=== PATIENT | female | born 1995 | race Hispanic/Latino ===

== ENCOUNTER 2021-10-15 18:07 | Day surgery (SDC) | payer OTHER ==
[2021-10-15] MEDS ORDERED: hydrALAZINE 20 MG/ML VIAL SLOW IVP PRN (19:31)
[2021-10-15 20:59] LABS: Bilirubin Neg (Negative); Blood, Urine Negative (Negative); Clarity Slightly Cloudy (Clear); Glucose, Urine (Dipstick) Normal (Negative); Ketone, Urine 50 mg/dL (Negative); Leukocyte Negative (Negative); Nitrite Negative (Negative); Protein, Urine (Dipstick) Negative (Neg-Trace); Specific Gravity, Urine 1.015 (1.002-1.036); Urobilinogen Normal mg/dL (Less than 2); pH, Urine 6.5 (5.0-9.0)
[2021-10-15 21:01] LABS: Urine Culture Reflex No No
[2021-10-15 21:03] LABS: Bacteria/HPF None Seen HPF (None Seen); RBC/HPF 0-3 HPF (0-3); Squamous Epithelial 0-3 HPF (0-3); WBC/HPF 0-3 HPF (0-3)
== END 2021-10-15 22:23 | disposition home or self-care (01) ==
LOC: CSHLD/OP 18:07
PROVIDERS: ATTEND Obstetrics & Gynecology
DX: O47.02 False labor before 37 completed weeks of gestation, second trimester (principal); O09.212 Supervision of pregnancy with history of pre-term labor, second trimester; O32.2XX0 Maternal care for transverse and oblique lie, not applicable or unspecified; Z3A.24 24 weeks gestation of pregnancy
CPT/HCPCS: 76815; 81001; 99284

== ENCOUNTER 2021-11-19 14:19 | Day surgery (SDC) | payer OTHER ==
[2021-11-19 14:49] VITALS: BMI 39.7
[2021-11-19] MEDS ORDERED: hydrALAZINE 20 MG/ML VIAL SLOW IVP PRN (16:37)
[2021-11-19 16:58] LABS: Bilirubin Neg (Negative); Blood, Urine Negative (Negative); Clarity Slightly Cloudy (Clear); Glucose, Urine (Dipstick) 50 mg/dL (Negative); Ketone, Urine 5 mg/dL (Negative); Leukocyte Negative (Negative); Nitrite Negative (Negative); Protein, Urine (Dipstick) 30 mg/dl (Neg-Trace); Specific Gravity, Urine 1.025 (1.002-1.036); Urobilinogen Normal mg/dL (Less than 2)
[2021-11-19 17:09] LABS: Bacteria/HPF 2+ HPF (None Seen); RBC/HPF 0-3 HPF (0-3); WBC/HPF 0-3 HPF (0-3)
== END 2021-11-19 18:30 | disposition home or self-care (01) ==
LOC: CSHLD/OP 14:19
PROVIDERS: ATTEND Obstetrics & Gynecology
DX: O99.891 Other specified diseases and conditions complicating pregnancy (principal); M54.50 Low back pain, unspecified; O09.213 Supervision of pregnancy with history of pre-term labor, third trimester; O99.013 Anemia complicating pregnancy, third trimester; D50.9 Iron deficiency anemia, unspecified; O26.613 Liver and biliary tract disorders in pregnancy, third trimester; K76.0 Fatty (change of) liver, not elsewhere classified; Z3A.29 29 weeks gestation of pregnancy
CPT/HCPCS: 51701; 76770; 81001; 87086; 99283

== ENCOUNTER 2021-11-26 10:06 | Day surgery (SDC) | payer OTHER ==
[2021-11-26 10:36] VITALS: BMI 40.7
[2021-11-26] MEDS ORDERED: hydrALAZINE 20 MG/ML VIAL SLOW IVP PRN (11:11)
[2021-11-26] MEDS ORDERED: Lactated Ringer's 1,000 ML IV SCH ×2 (11:15)
[2021-11-26] MEDS ORDERED: Ondansetron PF 4 MG/2 ML Vial IVP SCH (11:15)
[2021-11-26] MEDS ORDERED: Ondansetron PF 4 MG/2 ML Vial ONE (11:18)
[2021-11-26 12:34] LABS: #Monocytes 0.6 10x3/uL (0.0-1.1); #Neutrophils 9.3 10x3/uL (1.5-8.4); %Basophils 0.2 % (0.0-2.0); %Eosinophils 0.4 % (0.0-6.0); %Lymphocytes 9.6 % (18.0-47.0); %Monocytes 5.8 % (0.0-10.0); %Neutrophils 83.6 % (40.0-75.0); Hemoglobin 10.8 g/dL (12.0-15.5); Mean Corpuscular HGB CONC 33.9 g/dL (32.0-36.0); Mean Corpuscular Hemoglobin 28.5 pg (27.0-33.0); Mean Corpuscular Volume 84.2 fl (81.6-98.3); Mean Platelet Volume 11.1 fl (7.4-10.4); Platelet Count 236 10x3/uL (150-450); RBC Distribution Width 13.1 % (11.5-14.5); Red Blood Cell (RBC) Count 3.79 10x6/uL (3.90-5.03); White Blood Cell (WBC) Count 11.1 10x3/uL (3.5-10.5)
[2021-11-26 12:49] LABS: ALT (SGPT) 67 U/L (8-55); AST (SGOT) 52 U/L (5-34); Albumin 3.4 g/dL (3.5-5.0); Alkaline Phosphatase 66 U/L (40-110); Anion Gap 14 mmol/L (10-20); BUN (Urea Nitrogen) 5 mg/dL (7.0-18.7); Bilirubin, Total 0.3 mg/dL (0.2-1.2); Calc. Creatinine Clearance 306 mL/min (70-130); Calcium 8.7 mg/dL (7.8-10.44); Carbon Dioxide 20 mmol/L (22-29); Chloride 104 mmol/L (98-107); Globulin 3.3 g/dL (2.4-3.5); Glucose 97 mg/dL (70-105); Potassium 3.8 mmol/L (3.5-5.1); Protein, Total 6.7 g/dL (6.0-8.3); Sodium 134 mmol/L (136-145)
== END 2021-11-26 20:30 | disposition home or self-care (01) ==
LOC: CSHLD/OP 10:06
PROVIDERS: ATTEND Obstetrics & Gynecology
DX: O99.891 Other specified diseases and conditions complicating pregnancy (principal); R10.11 Right upper quadrant pain; O26.613 Liver and biliary tract disorders in pregnancy, third trimester; K76.0 Fatty (change of) liver, not elsewhere classified; Z3A.30 30 weeks gestation of pregnancy
CPT/HCPCS: 76705; 76815; 80053; 85025; 96360; 96361; 99281; J2405

== ENCOUNTER 2022-02-02 22:31 | Inpatient (IN) | payer OTHER ==
[2022-02-02 22:53] VITALS: BMI 41.7
[2022-02-02] MEDS ORDERED: Ondansetron PF 4 MG/2 ML Vial IVP PRN (23:22)
[2022-02-02] MEDS ORDERED: hydrALAZINE 20 MG/ML VIAL SLOW IVP PRN (23:22)
[2022-02-02] MEDS ORDERED: Promethazine HCl 25 MG/ML VIAL IM PRN (23:22)
[2022-02-02] MEDS ORDERED: Lidocaine 1% (PF) 30 ML VIAL SC PRN (23:22)
[2022-02-02] MEDS ORDERED: Ibuprofen 800 MG TAB PO PRN (23:22)
[2022-02-02] MEDS ORDERED: HYDROcodone/Acetaminophen 5/325 mg Tablet PO PRN (23:22)
[2022-02-02] MEDS ORDERED: Lactated Ringer's 1,000 ML IV SCH ×2 (23:30)
[2022-02-02] MEDS ORDERED: NS w/ Oxytocin 30 units 500 ML IV SCH (23:30)
[2022-02-03 00:05] LABS: Hemoglobin 11.3 g/dL (12.0-15.5); Mean Corpuscular HGB CONC 33.2 g/dL (32.0-36.0); Mean Corpuscular Volume 84.4 fl (81.6-98.3); Mean Platelet Volume 11.4 fl (7.4-10.4); Platelet Count 242 10x3/uL (150-450); RBC Distribution Width 13.3 % (11.5-14.5); Red Blood Cell (RBC) Count 4.03 10x6/uL (3.90-5.03); White Blood Cell (WBC) Count 7.6 10x3/uL (3.5-10.5)
[2022-02-03 00:46] LABS: HBSAg Index 0.16 S/CO (0-0.99); Hep B Surf Ag Non-Reactive S/CO (NonReactive); Syphilis Antibody Nonreactive (Nonreactive); Syphilis Antibody Index 0.07 S/CO (<1.00 Non-Reactive)
[2022-02-03] MEDS ORDERED: Boostrix 0.5 ML (Tdap) VIAL IM ONE (16:58)
[2022-02-03] MEDS ORDERED: Promethazine HCl 25 MG/ML VIAL IM PRN (16:58)
[2022-02-03] MEDS ORDERED: Ondansetron PF 4 MG/2 ML Vial IVP PRN (16:58)
[2022-02-03] MEDS ORDERED: diphenhydrAMINE 25 MG CAP PO PRN (16:58)
[2022-02-03] MEDS ORDERED: HYDROcodone/Acetaminophen 5/325 mg Tablet PO PRN (16:58)
[2022-02-03] MEDS ORDERED: Lanolin Ointment 7 GM TUBE TOP PRN (16:58)
[2022-02-03] MEDS ORDERED: Bisacodyl 10 MG SUPP PR PRN (16:58)
[2022-02-03] MEDS ORDERED: NS w/ Oxytocin 30 units 500 ML IV SCH (16:58)
[2022-02-03] MEDS ORDERED: hydrALAZINE 20 MG/ML VIAL SLOW IVP PRN (16:58)
[2022-02-03] MEDS ORDERED: Milk Of Magnesia 30 ML UDCUP PO PRN (16:58)
[2022-02-03] MEDS: Ferrous Sulfate 325 MG TAB PO SCH (17:58)
[2022-02-03] MEDS: Ibuprofen 800 MG TAB PO SCH (20:56)
[2022-02-03] MEDS: Docusate 100 MG CAP PO SCH (20:56)
[2022-02-04] MEDS: Ibuprofen 800 MG TAB PO SCH ×3 (05:07→21:16)
[2022-02-04] MEDS: Docusate 100 MG CAP PO SCH ×2 (08:44→21:16)
[2022-02-04] MEDS: Prenatal Vitamin 1 TAB PO SCH (08:44)
[2022-02-04] MEDS: Ferrous Sulfate 325 MG TAB PO SCH ×2 (08:49→18:23)
[2022-02-05] MEDS: Ibuprofen 800 MG TAB PO SCH (05:21)
[2022-02-05 07:48] VITALS: BP 133/76; TEMP 97.7
[2022-02-05] MEDS: Prenatal Vitamin 1 TAB PO SCH (08:24)
[2022-02-05] MEDS: Docusate 100 MG CAP PO SCH (08:24)
[2022-02-05] MEDS: Ferrous Sulfate 325 MG TAB PO SCH (08:24)
== END 2022-02-05 12:50 | disposition home or self-care (01) | DRG 807 ==
LOC: CSHLD/OP 22:31 → CSHLD 23:22 → UNDOADMIN 02-03 01:27 → CSHPP 02-03 16:13
PROVIDERS: ADMIT Family Medicine; ATTEND Family Medicine
PROC: 10907ZC Drainage of Amniotic Fluid, Therapeutic from Products of Conception, Via Natural or Artificial Opening (ICD-10-PCS; 2022-02-02)
PROC: 10E0XZZ Delivery of Products of Conception, External Approach (ICD-10-PCS; principal; 2022-02-03)
PROC: 10H07YZ Insertion of Other Device into Products of Conception, Via Natural or Artificial Opening (ICD-10-PCS; 2022-02-03)
DX: O99.214 Obesity complicating childbirth (principal); Z37.0 Single live birth; E66.9 Obesity, unspecified; Z3A.39 39 weeks gestation of pregnancy; Z79.899 Other long term (current) drug therapy
CPT/HCPCS: 85027; 86780; 86850; 86900; 86901; 87340; 87811; 99285

== ENCOUNTER 2024-03-13 15:50 | Emergency (ER) | payer OTHER ==
[2024-03-13 18:35] LABS: #Basophils 0.03 10x3/uL (0.0-0.2); #Eosinphils 0.17 10x3/uL (0.0-0.5); #Monocytes 0.64 10x3/uL (0.0-1.1); #Neutrophils 5.11 10x3/uL (1.5-8.4); %Basophils 0.3 % (0.0-2.0); %Eosinophils 1.9 % (0.0-6.0); %Lymphocytes 32.9 % (18.0-47.0); %Monocytes 7.2 % (0.0-10.0); %Neutrophils 57.4 % (40.0-75.0); Hematocrit 31.5 % (34.9-44.5); Hemoglobin 10.3 g/dL (12.0-15.5); Mean Corpuscular HGB CONC 32.7 g/dL (32.0-36.0); Mean Corpuscular Hemoglobin 28.8 pg (27.0-33.0); Mean Platelet Volume 10.4 fL (7.4-10.4); Platelet Count 260 10x3/uL (150-450); RBC Distribution Width 13.5 % (11.5-14.5); Red Blood Cell (RBC) Count 3.58 10x6/uL (3.90-5.03); White Blood Cell (WBC) Count 8.9 10x3/uL (3.5-10.5)
[2024-03-13 18:47] LABS: ALT (SGPT) 12 U/L (8-55); AST (SGOT) 15 U/L (5-34); Albumin 3.2 g/dL (3.5-5.0); Alkaline Phosphatase 50 U/L (40-110); Anion Gap 12 mmol/L (10-20); BUN (Urea Nitrogen) 8 mg/dL (7.0-18.7); Bilirubin, Total Less than 0.2 mg/dL (0.2-1.2); Calc. Creatinine Clearance 0 mL/min (70-130); Calcium 8.9 mg/dL (7.8-10.44); Carbon Dioxide 22 mmol/L (22-29); Chloride 105 mmol/L (98-107); Estimated GFR 126; Globulin 3.8 g/dL (2.4-3.5); Glucose 88 mg/dL (70-105); Lipase 59 U/L (8-78); Potassium 3.7 mmol/L (3.5-5.1); Sodium 135 mmol/L (136-145)
[2024-03-13] MEDS ORDERED: Morphine 4 MG/ML VIAL ONE (19:09)
[2024-03-13] MEDS ORDERED: Ondansetron PF 4 MG/2 ML Vial ONE (19:10)
[2024-03-13 20:22] LABS: Bilirubin Neg (Negative); Blood, Urine Negative (Negative); Clarity Clear (Clear); Glucose, Urine (Dipstick) Normal (Negative); Ketone, Urine Negative (Negative); Leukocyte 25 (Negative); Nitrite Negative (Negative); Protein, Urine (Dipstick) Negative (Neg-Trace); Urobilinogen Normal mg/dL (Less than 2)
[2024-03-13 20:33] LABS: Bacteria/HPF 1+ HPF (None Seen); CAUTI Indications for Culture Pelvic or flank pain; RBC/HPF None Seen HPF (0-3); Squamous Epithelial 0-3 HPF (0-3); WBC/HPF 0-3 HPF (0-3)
[2024-03-13 20:34] LABS: Urine Culture Reflex No No
== END 2024-03-13 21:15 | disposition home or self-care (01) ==
LOC: CSHERS 15:50
DX: O23.42 Unspecified infection of urinary tract in pregnancy, second trimester (principal); N39.0 Urinary tract infection, site not specified; Z3A.19 19 weeks gestation of pregnancy
CPT/HCPCS: 36415; 80053; 81001; 83690; 85025; 87086; J2272; J2405

== ENCOUNTER 2024-03-14 13:05 | Emergency (ER) | payer OTHER ==
[2024-03-14] MEDS ORDERED: Morphine 4 MG/ML VIAL ONE (13:46)
[2024-03-14 14:06] LABS: Bilirubin Neg (Negative); Blood, Urine Negative (Negative); Clarity Clear (Clear); Glucose, Urine (Dipstick) Normal (Negative); Ketone, Urine Negative (Negative); Leukocyte Negative (Negative); Nitrite Negative (Negative); Protein, Urine (Dipstick) Negative (Neg-Trace); Urobilinogen Normal mg/dL (Less than 2)
[2024-03-14] MEDS ORDERED: Ondansetron PF 4 MG/2 ML Vial ONE (14:06)
[2024-03-14 14:10] LABS: #Basophils 0.03 10x3/uL (0.0-0.2); #Monocytes 0.56 10x3/uL (0.0-1.1); #Neutrophils 5.55 10x3/uL (1.5-8.4); %Basophils 0.3 % (0.0-2.0); %Eosinophils 1.1 % (0.0-6.0); %Lymphocytes 29.8 % (18.0-47.0); %Monocytes 6.3 % (0.0-10.0); %Neutrophils 62.1 % (40.0-75.0); Hematocrit 35.3 % (34.9-44.5); Hemoglobin 11.1 g/dL (12.0-15.5); Mean Corpuscular HGB CONC 31.4 g/dL (32.0-36.0); Mean Corpuscular Hemoglobin 28.2 pg (27.0-33.0); Mean Corpuscular Volume 89.8 fL (81.6-98.3); Mean Platelet Volume 10.9 fL (7.4-10.4); Platelet Count 197 10x3/uL (150-450); RBC Distribution Width 13.6 % (11.5-14.5); Red Blood Cell (RBC) Count 3.93 10x6/uL (3.90-5.03); White Blood Cell (WBC) Count 8.9 10x3/uL (3.5-10.5)
[2024-03-14 14:23] LABS: ALT (SGPT) 14 U/L (8-55); AST (SGOT) 23 U/L (5-34); Albumin 3.4 g/dL (3.5-5.0); Alkaline Phosphatase 50 U/L (40-110); Anion Gap 14 mmol/L (10-20); BUN (Urea Nitrogen) 6 mg/dL (7.0-18.7); Bilirubin, Total Less than 0.2 mg/dL (0.2-1.2); Calc. Creatinine Clearance 0 mL/min (70-130); Carbon Dioxide 20 mmol/L (22-29); Chloride 105 mmol/L (98-107); Estimated GFR 125; Glucose 90 mg/dL (70-105); Lipase 58 U/L (8-78); Potassium 3.9 mmol/L (3.5-5.1); Protein, Total 7.4 g/dL (6.0-8.3); Sodium 135 mmol/L (136-145)
[2024-03-14 14:43] LABS: Bacteria/HPF Rare-Few HPF (None Seen); CAUTI Indications for Culture Pelvic or flank pain; RBC/HPF 0-3 HPF (0-3); Squamous Epithelial 0-3 HPF (0-3); Urine Culture Reflex No No; WBC/HPF None Seen HPF (0-3)
== END 2024-03-14 16:50 | disposition home or self-care (01) ==
LOC: CSHERS 13:05
DX: O99.891 Other specified diseases and conditions complicating pregnancy (principal); R29.898 Other symptoms and signs involving the musculoskeletal system; Z3A.19 19 weeks gestation of pregnancy; O23.42 Unspecified infection of urinary tract in pregnancy, second trimester; N39.0 Urinary tract infection, site not specified
CPT/HCPCS: 36415; 76775; 80053; 81001; 83690; 85025; 87086; 96374; 96375; J2272; J2405

== ENCOUNTER 2024-03-16 12:30 | Emergency (ER) | payer OTHER ==
[2024-03-16] MEDS ORDERED: Morphine 4 MG/ML VIAL ONE (12:51)
[2024-03-16 13:11] LABS: #Basophils 0.02 10x3/uL (0.0-0.2); #Eosinophils 0.11 10x3/uL (0.0-0.5); #Monocytes 0.69 10x3/uL (0.0-1.1); #Neutrophils 6.48 10x3/uL (1.5-8.4); %Basophils 0.2 % (0.0-2.0); %Eosinophils 1.1 % (0.0-6.0); %Lymphocytes 25.6 % (18.0-47.0); %Neutrophils 65.7 % (40.0-75.0); Hematocrit 34.8 % (34.9-44.5); Hemoglobin 11.6 g/dL (12.0-15.5); Mean Corpuscular HGB CONC 33.3 g/dL (32.0-36.0); Mean Corpuscular Hemoglobin 28.8 pg (27.0-33.0); Mean Corpuscular Volume 86.4 fL (81.6-98.3); Mean Platelet Volume 10.6 fL (7.4-10.4); Platelet Count 279 10x3/uL (150-450); RBC Distribution Width 13.5 % (11.5-14.5); Red Blood Cell (RBC) Count 4.03 10x6/uL (3.90-5.03); White Blood Cell (WBC) Count 9.9 10x3/uL (3.5-10.5)
[2024-03-16 13:24] LABS: ALT (SGPT) 11 U/L (8-55); AST (SGOT) 17 U/L (5-34); Albumin 3.5 g/dL (3.5-5.0); Alkaline Phosphatase 50 U/L (40-110); Anion Gap 13 mmol/L (10-20); BUN (Urea Nitrogen) 7 mg/dL (7.0-18.7); Bilirubin, Total Less than 0.2 mg/dL (0.2-1.2); Calc. Creatinine Clearance 0 mL/min (70-130); Calcium 9.9 mg/dL (7.8-10.44); Carbon Dioxide 21 mmol/L (22-29); Chloride 105 mmol/L (98-107); Estimated GFR 123; Globulin 4.1 g/dL (2.4-3.5); Glucose 90 mg/dL (70-105); Lipase 62 U/L (8-78); Potassium 3.8 mmol/L (3.5-5.1); Protein, Total 7.6 g/dL (6.0-8.3); Sodium 135 mmol/L (136-145)
== END 2024-03-16 15:34 | disposition home or self-care (01) ==
LOC: CSHERS 12:30
DX: O99.891 Other specified diseases and conditions complicating pregnancy (principal); M54.50 Low back pain, unspecified; R10.9 Unspecified abdominal pain; Z3A.19 19 weeks gestation of pregnancy
CPT/HCPCS: 76705; 80053; 83690; 85025; 96361; 96374; J2272

== ENCOUNTER 2024-07-18 15:20 | Emergency (ER) | payer OTHER ==
[2024-07-18] MEDS ORDERED: Lidocaine 1% (PF) 30 ML VIAL ONE (16:01)
[2024-07-18] MEDS ORDERED: Acetaminophen 500 MG TAB ONE (16:02)
[2024-07-18] MEDS ORDERED: Bacitracin 1 PK ONE (18:29)
== END 2024-07-18 18:30 | disposition home or self-care (01) ==
LOC: CSHERS 15:20
DX: L02.01 Cutaneous abscess of face (principal)
CPT/HCPCS: 10060; 87070; 87077; 87186; 87205

== ENCOUNTER 2024-07-20 11:34 | Emergency (ER) | payer OTHER ==
[2024-07-20] MEDS ORDERED: Ondansetron PF 4 MG/2 ML Vial ONE (13:10)
[2024-07-20] MEDS ORDERED: Morphine 4 MG/ML VIAL ONE (13:10)
[2024-07-20 14:09] LABS: #Basophils 0.03 10x3/uL (0.0-0.2); #Eosinophils 0.07 10x3/uL (0.0-0.5); #Monocytes 0.53 10x3/uL (0.0-1.1); %Basophils 0.4 % (0.0-2.0); %Eosinophils 0.9 % (0.0-6.0); %Lymphocytes 26.6 % (18.0-47.0); %Monocytes 6.9 % (0.0-10.0); %Neutrophils 64.7 % (40.0-75.0); Hematocrit 30.3 % (34.9-44.5); Hemoglobin 10.3 g/dL (12.0-15.5); Mean Corpuscular Hemoglobin 28.1 pg (27.0-33.0); Mean Corpuscular Volume 82.6 fL (81.6-98.3); Mean Platelet Volume 11.4 fL (7.4-10.4); Platelet Count 247 10x3/uL (150-450); Red Blood Cell (RBC) Count 3.67 10x6/uL (3.90-5.03); White Blood Cell (WBC) Count 7.72 10x3/uL (3.5-10.5)
[2024-07-20 14:20] LABS: ALT (SGPT) 13 U/L (Less than 34); AST (SGOT) 22 U/L (11-34); Albumin 2.9 g/dL (3.1-4.5); Alkaline Phosphatase 111 U/L (40-110); Anion Gap 14 mmol/L (10-20); BUN (Urea Nitrogen) 6 mg/dL (7.0-18.7); Bilirubin, Total 0.3 mg/dL (0.3-1.2); CK (CPK) 48 U/L (29-168); Calc. Creatinine Clearance 0 mL/min (70-130); Calcium 8.5 mg/dL (7.8-10.44); Carbon Dioxide 19 mmol/L (22-29); Chloride 108 mmol/L (98-107); Estimated GFR 133; Globulin 4.3 g/dL (2.4-3.5); Glucose 75 mg/dL (70-105); Potassium 3.9 mmol/L (3.5-5.1); Protein, Total 7.2 g/dL (6.0-8.3); Sodium 137 mmol/L (136-145)
[2024-07-20 14:56] LABS: Bilirubin Neg (Negative); Blood, Urine Negative (Negative); Clarity Clear (Clear); Glucose, Urine (Dipstick) Normal (Negative); Ketone, Urine 50 mg/dL (Negative); Leukocyte Negative (Negative); Nitrite Negative (Negative); Protein, Urine (Dipstick) 30 mg/dl (Neg-Trace); Urobilinogen Normal mg/dL (Less than 2); pH, Urine 6.5 (5.0-9.0)
[2024-07-20 15:30] LABS: CAUTI Indications for Culture Pelvic or flank pain; RBC/HPF 0-3 HPF (0-3); WBC/HPF 0-3 HPF (0-3)
[2024-07-20 15:32] LABS: Bacteria/HPF 1+ HPF (None Seen)
[2024-07-20 15:34] LABS: Urine Culture Reflex No No
== END 2024-07-20 15:40 | disposition home or self-care (01) ==
LOC: CSHERS 11:34
DX: O99.713 Diseases of the skin and subcutaneous tissue complicating pregnancy, third trimester (principal); L02.01 Cutaneous abscess of face; L03.211 Cellulitis of face; Z3A.37 37 weeks gestation of pregnancy
CPT/HCPCS: 10060; 70487; 80053; 81001; 82550; 83605; 85025; 96361; 96374; 96375; J2270; J2405